=== PATIENT | female | born 1985 | race American Indian/Alaskan Native ===

== ENCOUNTER 2020-12-02 08:37 | Day surgery (SDC) | payer OTHER ==
--- NOTE | 2020-12-02 07:33 | Short Stay Summary ---
Short Stay Documentation Date of service: 12/02/20 Narrative H&P: 35y/o with undesired fertility. The patient is aware of other contraceptive options. She has elected to undergo permanent sterilization. - History Principal diagnosis: Unwanted fertility Past Medical History: No medical history Past Surgical History: No surgical history Social history: single - Allergies and Medications Current Medications: Allergies No Known Allergies Allergy (Verified 03/15/15 01:40) Home Medications Medication Instructions Recorded Confirmed Last Taken Type Omeprazole 20 mg PO DAILY 11/25/20 11/25/20 Unknown History Women's Multivitamin Gummies 1 dose PO DAILY 11/25/20 11/25/20 Unknown History - Physical exam General appearance: no acute distress Integumentary: no rash HEENT: Atraumatic Lungs: Clear to auscultation Breasts: deferred Heart: Regular rate Gastrointestinal: normal Female Genitourinary: deferred Rectal Exam: deferred - Brief post op/procedure progress note Date of procedure: 12/02/20 Pre-op diagnosis: Unwanted fertility Post-op diagnosis: same Procedure: Laparoscopy Bilateral salpingectomy Right ovarian cystotomy Anesthesia: KENDRICK Surgeon: JOEL JOHNSON Estimated blood loss: minimal Pathology: none Condition: stable - Hospital course Hospital course: The patient was admitted the day of surgery and underwent a bilateral salpingectomy. Please see operative note for details of surgery. Postoperative course was uneventful. - Disposition Condition at discharge: Good Disposition: [id number] TO HOME OR SELFCARE Short Stay Discharge Plan Activity: other (Pelvic rest for 1 week) Additional Instructions: Follow-up is not required Follow-up as needed Prescriptions: Ibuprofen [Motrin] 800 mg PO Q8HR PRN #30 tablet PRN Reason: Pain , Severe (7-10) HYDROcodone/APAP 5-325 [[place] 5/325] 1 each PO Q6HR PRN #15 tablet PRN Reason: Pain
[~2020-12-02 08:37] MED LIST: BUPIVACAINE/PF (0.5%) 5 MG/1 ML 30 ML VIAL INFILTRATI ONE; SODIUM CHLORIDE 0.9% IRR 1,500 ML BOTTLE IR ONE
--- NOTE | 2020-12-02 09:10 | Anesthesia Day of Surgery ---
Anesthesia Day of Surgery - Day of Surgery Patient Examined: Yes Patient H&P Reviewed: Yes Patient is NPO: Yes
--- NOTE | 2020-12-02 09:10 | Anesthesia Consultation ---
Anesthesia Consult and Med Hx Date of service: 12/02/20 - Airway Anesthetic Teeth Evaluation: Good ROM Head & Neck: Adequate Mental/Hyoid Distance: Adequate Mallampati Class: Class II Intubation Access Assessment: Probably Good - Pre-Operative Health Status ASA Pre-Surgery Classification: ASA2 Proposed Anesthetic Plan: General - Pulmonary Hx Smoking: Yes (AGE 22 YR TILL 25 YR THEN QUIT) Hx Asthma: No COPD: No Hx Pneumonia: No Hx Sleep Apnea: No - Cardiovascular System Hx Hypertension: No Hx Heart Attack/AMI: No Hx Pacemaker: No Hx Internal Defibrillator: No Hx Heart Murmur: No - Central Nervous System Hx Seizures: No Hx Back Pain: Yes Hx Psychiatric Problems: No - Gastrointestinal Hx Gastroesophageal Reflux Disease: Yes - Endocrine Hx End Stage Renal Disease: No Hx Cirrhosis: No Hx Liver Disease: No - Hematic Hx Anemia: No Hx Sickle Cell Disease: No - Other Systems Hx Alcohol Use: No Hx Substance Use: No Hx Cancer: No Hx Obesity: Yes (BMI 33.4)
[2020-12-02] MEDS ORDERED: LACTATED RINGERS 1,000 ML IV SCH (09:15)
[2020-12-02] MEDS ORDERED: KETOROLAC 30 MG/1 ML INJ ONE (09:48)
[2020-12-02] MEDS ORDERED: ROCURONIUM 50 MG/5 ML INJ IV ONE (09:48)
[2020-12-02] MEDS ORDERED: LIDOCAINE MPF (2%) 20 MG/1 ML VIAL 5 ML ONE (09:48)
[2020-12-02] MEDS ORDERED: ONDANSETRON 4 MG/2 ML INJ ONE (09:48)
[2020-12-02] MEDS ORDERED: dexAMETHasone 20 MG/5 ML VIAL ONE (09:48)
[2020-12-02] MEDS ORDERED: HYDROmorphone 1 MG/1 ML INJ ONE (09:49)
[2020-12-02] MEDS ORDERED: propofoL 200 MG/20 ML VIAL IV ONE ×2 (09:49→10:00)
[2020-12-02] MEDS ORDERED: fentaNYL 100 MCG/2 ML INJ ONE (10:00)
[2020-12-02] MEDS ORDERED: FAMOTIDINE 20 MG/2 ML INJ IV NR (10:00)
[2020-12-02] MEDS ORDERED: GABAPENTIN 300 MG CAP PO NR (10:00)
[2020-12-02] MEDS ORDERED: MIDAZOLAM 2 MG/2 ML INJ IV NR (10:00)
[2020-12-02] MEDS ORDERED: CELECOXIB 200 MG CAP PO NR (10:00)
[2020-12-02] MEDS ORDERED: HYDROmorphone 1 MG/1 ML INJ IV PRN (10:22)
[2020-12-02] MEDS ORDERED: ONDANSETRON 4 MG/2 ML INJ IV PRN (10:22)
[2020-12-02] MEDS ORDERED: BUPIVACAINE/PF (0.5%) 5 MG/1 ML 30 ML VIAL INFILTRATI ONE (10:40)
[2020-12-02] MEDS ORDERED: SODIUM CHLORIDE 0.9% IRR 1,500 ML BOTTLE IR ONE (10:40)
[2020-12-02] MEDS ORDERED: GLYCOPYRROLATE 0.4 MG/2 ML INJ ONE (10:49)
[2020-12-02] MEDS ORDERED: NEOSTIGMINE 10MG/10 ML INJ MDV ONE (10:49)
[2020-12-02] MEDS ORDERED: SILVER NITRATE APPLICATOR 1 EA TP ONE ×2 (10:55→10:56)
--- NOTE | 2020-12-02 11:11 | Operative Report ---
Operative Report Operative Report: Date of surgery: December 02, 2020 Preoperative diagnosis: Unwanted fertility Postoperative diagnosis: Same as above Procedure: Laparoscopy; Bilateral salpingectomy; right ovarian cystotomy Surgeon: Shelbi Lainez M.D. Anesthesia: General endotracheal anesthesia Estimated blood loss: Minimal Pathology: Bilateral fallopian tubes Findings: Normal size uterus with small leiomyomas at the cornua bilaterally. Normal tubes. Right ovarian cyst Indication: 35-year-old -0-0-2 with a history of undesired fertility. The patient is elected for permanent sterilization. Procedure: The patient was taken to the operating room and given general endotracheal anesthesia without complication. The patient is prepped and draped in a normal sterile fashion. A bivalve speculum was placed in the patient's vagina and a single-tooth tenaculum was placed on the anterior lip of the cervix .A uterine acorn manipulator was placed, and the bivalve speculum was then removed. Attention was then turned to the patient's abdomen where a 5 mm infraumbilical skin incision was then made. A Veress needle was placed and peritoneal entry was verified water-filled syringe. Insufflation of the peritoneal cavity was performed with CO2 gas. A 5 mm trocar was placed and the laparoscope was then inserted. The patient was then placed in Trendelenburg. A 7 mm suprapubic skin incision was then made. Under direct visualization a 7 mm trocar was then placed. An additional 5 mm left lateral trocar was also placed. General survey of the patient's abdomen revealed small right ovarian cyst, normal tubes, normal size uterus with small leiomyomas. The fallopian tube was then followed out to the fimbriated end. The LigaSure device was used in order to coagulate and transect the mesosalpinx. The fallopian tube was excised from the adnexa. The fallopian tube was removed through the 7 mm trocar. This was performed on the contralateral side as well. Right ovarian cystotomy was performed with the LigaSure device. The trocars were then removed. The pneumoperitoneum was then released. The 5 mm trocar laparoscope was then removed. The skin incisions were then closed with 4-0 Monocryl. The incisions were injected with quarter percent Marcaine. Dressings were applied to the incision. The vaginal instruments were then removed atraumatically. Then successfully extubated and taken to the recovery room. All sponge laps and needle counts were correct x2.
[2020-12-02] MEDS: HYDROmorphone 1 MG/1 ML INJ IV PRN ×2 (11:26→11:36)
--- NOTE | 2020-12-02 11:44 | Post Anesthesia Evaluation ---
- Post Anesthesia Evaluation Patient Participated: Yes Airway Patent: Yes Stable Respiratory Function: Yes Nausea/Vomiting: No Temp > 96.8F: Yes Pain Manageable: Yes Adequeate Hydration: Yes Anesthesia Complications: No Block Receding Appropriately: Not Applicable Patient on Ventilator: No
[2020-12-02] MEDS ORDERED: HYDROcodone/ACETAMINOPHEN 5-325 MG TAB PO PRN (11:53)
[2020-12-02 12:53] VITALS: BP 119/75
== END 2020-12-02 12:55 | disposition home or self-care (01) ==
LOC: OR 08:37
PROVIDERS: ATTEND Obstetrics & Gynecology
DX: Z30.2 Encounter for sterilization (principal); N83.201 Unspecified ovarian cyst, right side; N70.91 Salpingitis, unspecified; K21.9 Gastro-esophageal reflux disease without esophagitis; E66.9 Obesity, unspecified; Z79.899 Other long term (current) drug therapy; Z87.891 Personal history of nicotine dependence; Z87.440 Personal history of urinary (tract) infections; Z98.890 Other specified postprocedural states; Z68.33 Body mass index [BMI] 33.0-33.9, adult
CPT/HCPCS: 58670; 58679; 81025; 88302; J1100; J1170; J1885; J2250; J2405; J2704; J2710; J7120; J3010